=== PATIENT | female | born 1970 | race Caucasian/White ===

== ENCOUNTER → 2018-10-19 14:38 | Outpatient (CLI) | payer OTHER, SELFPAY ==
--- NOTE | 2018-10-19 | DI.MG.S_ITS ---
BILATERAL DIGITAL SCREENING MAMMOGRAM 3D/2D WITH CAD: 10/19/2018 CLINICAL: Routine screening. Family history of breast cancer. Comparison is made [facility] The tissue of both breasts is heterogeneously dense. This may lower the sensitivity of mammography. Current study was also evaluated with a Computer Aided Detection (CAD) system. No significant masses, calcifications, or other findings are seen in either breast. There has been no significant interval change. IMPRESSION: NEGATIVE There is no mammographic evidence of malignancy. A 1 year screening mammogram is recommended. This exam was interpreted at Station ID: [id number]. NOTE: For mammograms, a report in lay terms will be sent to the patient. Approximately 15% of breast malignancies will not be visualized mammographically. In the management of a palpable breast mass, a negative mammogram must not discourage biopsy of a clinically suspicious lesion. Electronically Signed By: Ashu keene/jonas:10/19/2018 17:55:40 letter sent: Normal Exam ACR BI-RADS Category 1: Negative 3341F
== END ==
PROVIDERS: Family Provider Internal Medicine; PCP Internal Medicine; Visit Provider Internal Medicine
DX: Z12.31 Encounter for screening mammogram for malignant neoplasm of breast (principal); Z80.3 Family history of malignant neoplasm of breast
CPT/HCPCS: 77063; 77067

== ENCOUNTER → 2019-07-15 11:47 | Outpatient (CLI) | payer OTHER, SELFPAY ==
--- NOTE | 2019-07-15 | DI.RAD.S_ITS ---
PROCEDURE: XR CHEST 2V INDICATIONS: ASTHMA TECHNIQUE: 2 views of the chest were acquired. COMPARISON: [facility], , CHEST 2 VIEW, 06/21/2013, 11:11. FINDINGS: Surgical changes and devices: Lumbosacral spine posterior fixation devices stable over time.. Lungs and pleura: Lungs are clear. No pleural effusions or pneumothorax. Mediastinum: Mediastinal contours are normal. Heart size is normal. Bones and chest wall: No suspicious bony abnormalities. Soft tissues appear unremarkable. IMPRESSION: Normal for age, source of current asthma symptoms is not seen. Dictated by: Melquiades Montoya M.D. on 07/15/2019 at 12:47 Approved by: Melquiades Montoya M.D. on 07/15/2019 at 12:48
== END ==
PROVIDERS: PCP Internal Medicine; Visit Provider Internal Medicine
DX: J45.909 Unspecified asthma, uncomplicated (principal)
CPT/HCPCS: 71046

== ENCOUNTER → 2020-02-18 11:44 | Outpatient (CLI) | payer OTHER, SELFPAY ==
[2020-02-19 09:40] LABS: COVID19 Sendout Not Detected (Not Detect)
== END ==
PROVIDERS: PCP Internal Medicine; Visit Provider Physician Assistant
DX: Z11.59 Encounter for screening for other viral diseases (principal)
CPT/HCPCS: 87635

== ENCOUNTER 2020-02-21 14:02 | Day surgery (SDC) | payer OTHER, SELFPAY ==
--- NOTE | 2020-02-21 | PATH_ITS ---
[facility] Accession Number: [id number] . 01 Material submitted: . colon - FRIABLE MUCOSA ASCENDING COLON . 01 Clinical history: . SCREENING COLONOSCOPY . 02 Diagnosis: Ascending Colon, Friable Mucosa, Biopsy: Colonic mucosa with a small benign lymphoid aggregate and no other diagnostic abnormality. Additional levels were examined. Negative for dysplasia and malignancy. V 02/25/2020 1413 Local . 02 Electronically signed: . Delma Gutierrez MD, Pathologist NPI- [id number] . 01 Gross description: . FRIABLE MUCOSA ASCENDING COLON: Received in formalin are 2 fragment(s) of roach, soft tissue measuring 0.3 x 0.2 x 0.1 cm to 0.3 x 0.1 x 0.1 cm submitted entirely in 1 cassette(s) /QBJ 02/22/2020 0753 Local . 02 Pathologist provided ICD-10: Z12.11 . 02 CPT . 742056 Performed at: 01 [facility] [address], [place], [place] [id number] MD Patrick Killian MD Phone: [phone] Performed at: 02 [facility] [address] [place], [place] [id number] MD Delma Gutierrez MD Phone: [phone]
--- NOTE | 2020-02-21 12:02 | P.HP_ITS ---
History of Present Illness History of Present Illness Date Patient Seen: 02/21/20 Chief complaint: SCREENING COLONOSCOPY Narrative: 49 Years Old Female seen today for consideration of a screening colonoscopy. There have been no lower GI symptoms suggesting disease such as change in bowel habits, bleeding, abdominal pain or anemia. There's been no family history of colon cancer or colon polyps. Overall health issues have been stable, including no major cardiac events for at least 6 weeks. Current Medications: 1) Prednisone 20 Mg Oral Tablet (Prednisone) .... Take 2 tablets for 5 days, then 1 tablet for 5 days then 1/2 tablet for 5 days. 2) Amoxicillin-Pot Clavulanate 875-125 Mg Oral Tablet (Amoxicillin-Pot Clavulanate) .... Take one tablet twice a day for 14 days 3) Ketoconazole 2 % External Shampoo (Ketoconazole) .... use 2 times per week 4) Advair Diskus 250-50 Mcg/dose Inhalation Aerosol Powder Breath Activated (Fluticasone-Salmeterol) .... 1 inhalation twice daily 5) Fluocinonide 0.05 % External Solution (Fluocinonide) .... 1 application to affected area twice daily 6) Clobetasol Propionate 0.05 % External Cream (Clobetasol Propionate) .... Apply thin film to the affected area twice daily. Not for use on face. 7) Ipratropium-Albuterol 0.5-2.5 (3) Mg/3ml Inhalation Solution (Ipratropium- Albuterol) .... 1 vial by nebulizer 4-6 times daily. 8) Montelukast Sodium 10 Mg Oral Tablet (Montelukast Sodium) .... Take 1 tablet by mouth once a day for asthma or allergies. 9) Budesonide 0.5 Mg/2ml Inhalation Suspension (Budesonide) .... one in nebulizer every 6 hours as needed for asthma 10) Proair Hfa 108 (90 Base) Mcg/act Inhalation Aerosol Solution (Albuterol Sul fate) .... 2 puffs every 4 hours PRN 11) Nortrel 7/7/7 0.5/0.75/1-35 Mg-Mcg Oral Tablet (Norethin-Eth Estrad Triphasic) .... Take one by mouth every day Allergies: 1) Sulfa (Severe) 2) Hydrocodone (Severe) Past Medical History: Broken back 2003 Abnormal pap smear-2012 Back Fracture Hayfever Nasal polyps Hx chicken pox Asthma Perimenopause Past Surgical History: History of back surgery with 4 rods (12/2002) Family History: Reviewed history from 09/19/2018 and no changes required: Father: Armond Mother: Rebecca-Breast cancer Siblings: rPashant(1970) Grandmother: Breast cancer Social History: Marital Status: Children: Livia(1993), Herberth(1995) Occupation: [employer] Household Members: Bill- Education: Alcohol drinks/day: 4/day Caffeine use/day: 0 Type of Exercise: walk Exercise Times per Week: 2/week Dental Care w/in 6 mos.: no Seat Belt Use: yes Smoking Status: never smoker HIV High Risk Behavior: no Patient History Medical History (Updated 05/07/18 @ 18:24 by SABRINA Maynard) Abnormal Pap smear of cervix (Chronic 2012) Asthma (Chronic) Back fracture (Resolved) Chicken pox (Resolved) Hayfever (Chronic 2004) Nasal polyps (Chronic) Surgical History (Updated 05/07/18 @ 08:31 by Stephanie Wilcox) Anesthesia (Resolved) History of back surgery (Resolved 12/2004) History of back surgery (Resolved 12/2002) History of sinus surgery (Resolved 08/2013) Family & Social History Family History (Updated 11/23/14 @ 00:00 by Conversion Provider) Grandmother Breast cancer Mother Breast cancer Tobacco & Substance use: Smoking Status Never smoker Meds Home Medications and Allergies Home Medications Medication Instructions Recorded Confirmed Type budesonide 0.5 mg INH SEE INSTRUCTIONS #120 08/03/16 02/21/20 History montelukast [Singulair] 10 mg PO QDAY #30 tab 08/03/16 02/21/20 Rx ipratropium-albuterol 3 ml INH BID PRN #60 ea 12/07/16 02/21/20 Rx Necon () 1 tab PO QDAY #3 pac 08/07/17 02/21/20 Rx clobetasol 0.05 % TOPICAL QDAY #15 gm 08/07/17 02/21/20 Rx fluocinonide 0.05 % topical 1 applictn TOP BID #60 ml 05/07/18 02/21/20 Rx solution fluticasone 250 mcg-salmeterol 50 1 inhalation INHALATION BID #60 05/07/18 02/21/20 Rx mcg/dose blistr powdr for dose inhalation albuterol sulfate 90 mcg/actuation 2 inhalation INHALATION Q4H PRN #1 09/04/18 02/21/20 Rx breath activated powder inhaler each prednisone 10 mg PO SEE INSTRUCTIONS PRN 02/21/20 02/21/20 History Allergies Allergy/AdvReac Type Severity Reaction Status Date / Time Sulfa (Sulfonamide Allergy Severe RASH Verified 02/21/20 14:17 Antibiotics) [SULFA (SULFONAMIDE ANTIBIOTICS)] hydrocodone [HYDROCODONE] Allergy Mild VOMITING Verified 02/21/20 14:17 Review of Systems Review of Systems ROS: Yes All systems reviewed with the patient and are negative except as otherwise documented Exam Narrative Exam Narrative: GENERAL: Alert and oriented, appearing stated age and in no acute distress. HEENT: Head normocephalic/atraumatic. Pupils equal, round, and reactive to light and accomodation. Extraocular muscles intact. Tympanic membranes clear. Nasal mucosa moist, septum midline. Oral mucosa moist, no lesions. Neck soft and supple, no lymphadenopathy. LUNGS: Clear to ausculation bilaterally, no wheezes, rhonchi or rales. CV: Normal S1 and S2 with regular rate and rhythm, no audible murmurs, rubs or gallops. ABDOMEN: Soft, non-tender, non-distended, no organomegaly. Positive bowel sounds. EXTREMITIES: No clubbing, cyanosis, or edema. NEURO: Cranial nerves II through XII grossly intact, no focal deficits. PSYCH: Alert and oriented x 3. SKIN: No concerning lesions. Assessment & Plan Assessment & Plan narrative: 1. Screening for colon cancer Plan for colonoscopy. The nature and character of the procedure as well as anticipated results were discussed. The possibility of not completing the procedure was also discussed. Possible complications including aspiration pneumonia, bleeding, perforation and reaction to medications either for sedation or preparation and missed lesions were discussed. Questions were answered and proceeding to the colonoscopy was elected. Informed consent signed. I sincerely appreciate the referral allowing me to participate in this patient's care. Please contact me with any questions or concerns.
--- NOTE | 2020-02-21 12:04 | PM.OP.ENDO ---
Operative Date/Time/Diagnoses Date of procedure: 02/21/20 Procedure Notes SCOAP/Timeout: 3:12 p.m. Procedure in detail: ENDOSCOPIST: Tina Amezquita MD Sedation RN: Armand Mccann RN Sedation start time: 3:13 p.m. Sedation end time: 3:48 p.m. PROCEDURE: Colonoscopy INDICATIONS: 1. Screening for colon cancer MEDICATION: Levsin 0.125 mg sublingual, incremental doses of Versed and fentanyl until appropriate level sedation achieved. ASA CLASS: 1 CECAL WITHDRAWAL TIME: 15 minutes COMPLICATIONS: None. EXTENT OF PROCEDURE: Cecum. QUALITY OF PREP: Good with portions of liquid stool. PROCEDURE: Prior to insertion of the colonoscope, a digital rectal examination was accomplished with circumferential palpation of the distal rectal mucosa without significant findings being noted. The high-definition pediatric colonoscope was passed into the rectum in the usual fashion and advanced over to the cecum without difficulty. The ileocecal valve, appendiceal stoma, and medial wall all could be inspected and no abnormalities were seen. ASCENDING COLON: As the colonoscope was withdrawn, care was taken to expose and inspect the haustral folds and there was a small area of friable mucosa that was biopsied x2. HEPATIC FLEXURE: Normal, no polyps, diverticula or other abnormalities. TRANSVERSE COLON: Normal, no polyps, diverticula or other abnormalities. DESCENDING COLON: Normal, no polyps, diverticula or other abnormalities. SIGMOID COLON: Normal, no polyps, diverticula or other abnormalities. RECTUM: Normal. J maneuver was produced. There was no significant perianal disease. The J maneuver was broken. The remainder of the rectum was inspected and there was [] no external hemorrhoid disease. The scope was withdrawn. IMPRESSION: 1. Normal colonoscopy 2. Friable mucosa, proximal ascending colon PLAN: 1. Follow-up in clinic status post pathology results. 2. Anticipate 10 year interval between scopes, will await pathology. The possibility of a missed lesion including a malignancy has been discussed with the patient previously. Potential alarm symptoms have been discussed and should be reported immediately. Post-procedure Recommendations: Colonscopy in 10 years Follow up: weeks (2) Disposition: PACU
[2020-02-21] MEDS: HYOSCYAMINE 0.125 MG TABLET PO (14:22)
[2020-02-21 14:30] VITALS: BP 126/77; PULSE 78; RESP 16; TEMP 36.8; O2SAT 99; BMI 24.6
[2020-02-21] MEDS: LACTATED RINGERS 1,000 ML 200 ML IV (14:45)
[2020-02-21] MEDS: fentaNYL 250 MCG/5 ML INJ IV (15:13)
[2020-02-21] MEDS: MIDAZOLAM 5 MG/5 ML VIAL IV (15:13)
[2020-02-21 15:52] VITALS: BP 115/85; PULSE 75; RESP 15; O2SAT 97
[2020-02-21 15:57] VITALS: BP 110/70; PULSE 70; RESP 20; O2SAT 98
[2020-02-21 16:14] VITALS: BP 126/77; PULSE 78; RESP 16; TEMP 36.2; O2SAT 99
== END 2020-02-21 16:16 | disposition home or self-care (01) ==
PROVIDERS: PCP Internal Medicine; Referring Provider Internal Medicine; Visit Provider Student in an Organized Health Care Education/Training Program
PROC: 0DJD8ZZ Inspection of Lower Intestinal Tract, Via Natural or Artificial Opening Endoscopic (ICD-10-PCS; CPT 45378; principal; 2020-02-21 15:15)
DX: Z12.11 Encounter for screening for malignant neoplasm of colon (principal)
CPT/HCPCS: 45380; J2250; J3010

== ENCOUNTER → 2020-09-16 16:46 | Outpatient (CLI) | payer OTHER, SELFPAY ==
--- NOTE | 2020-09-16 16:48 | DI.MG.S_ITS ---
BILATERAL DIGITAL SCREENING MAMMOGRAM 3D/2D WITH CAD: 09/16/2020 CLINICAL: Routine screening. Family history of breast cancer. Comparison is made to exams dated: 10/19/2018 mammogram and 10/16/2017 mammogram - [facility]. The tissue of both breasts is heterogeneously dense. This may lower the sensitivity of mammography. Current study was also evaluated with a Computer Aided Detection (CAD) system. No significant masses, calcifications, or other findings are seen in either breast. There has been no significant interval change. IMPRESSION: NEGATIVE There is no mammographic evidence of malignancy. A 1 year screening mammogram is recommended. This exam was interpreted at Station ID: [id number]. NOTE: For mammograms, a report in lay terms will be sent to the patient. Approximately 15% of breast malignancies will not be visualized mammographically. In the management of a palpable breast mass, a negative mammogram must not discourage biopsy of a clinically suspicious lesion. Electronically Signed By: Ashu keene/jonas:09/16/2020 19:42:30 letter sent: Normal Exam ACR BI-RADS Category 1: Negative 3341F
== END ==
PROVIDERS: PCP Internal Medicine; Referring Provider Internal Medicine; Visit Provider Internal Medicine
DX: Z12.31 Encounter for screening mammogram for malignant neoplasm of breast (principal); Z80.3 Family history of malignant neoplasm of breast
CPT/HCPCS: 77063; 77067

== ENCOUNTER → 2021-09-20 16:31 | Outpatient (CLI) | payer OTHER, SELFPAY ==
--- NOTE | 2021-09-20 | DI.MG.S_ITS ---
BILATERAL DIGITAL SCREENING MAMMOGRAM 3D/2D WITH CAD: 09/20/2021 CLINICAL: Routine screening. Family history of breast cancer. Comparison is made to exams dated: 09/16/2020 mammogram, 10/19/2018 mammogram, and 10/16/2017 mammogram - [facility]. The tissue of both breasts is heterogeneously dense. This may lower the sensitivity of mammography. Current study was also evaluated with a Computer Aided Detection (CAD) system. No significant masses, calcifications, or other findings are seen in either breast. There has been no significant interval change. IMPRESSION: NEGATIVE There is no mammographic evidence of malignancy. A 1 year screening mammogram is recommended. This exam was interpreted at Station ID: [id number]. NOTE: For mammograms, a report in lay terms will be sent to the patient. Approximately 15% of breast malignancies will not be visualized mammographically. In the management of a palpable breast mass, a negative mammogram must not discourage biopsy of a clinically suspicious lesion. Electronically Signed By: Demian gramajo/jonas:09/21/2021 09:55:37 letter sent: Normal Exam ACR BI-RADS Category 1: Negative 3341F
== END ==
PROVIDERS: PCP Internal Medicine; Referring Provider Internal Medicine; Visit Provider Internal Medicine
DX: Z12.31 Encounter for screening mammogram for malignant neoplasm of breast (principal); Z80.3 Family history of malignant neoplasm of breast
CPT/HCPCS: 77063; 77067

== ENCOUNTER → 2022-09-29 11:51 | Outpatient (CLI) | payer OTHER, SELFPAY ==
--- NOTE | 2022-09-29 | DI.MG.S_ITS ---
BILATERAL DIGITAL SCREENING MAMMOGRAM 3D/2D WITH CAD: 09/29/2022 CLINICAL: Routine screening. Family history of breast cancer. Comparison is made to exams dated: 09/20/2021 mammogram, 09/16/2020 mammogram, and 10/19/2018 mammogram - [facility]. Both breasts are heterogeneously dense, which may obscure small masses (category c / 51-75% glandular tissue). Current study was also evaluated with a Computer Aided Detection (CAD) system. No significant masses, calcifications, or other findings are seen in either breast. There has been no significant interval change. IMPRESSION: NEGATIVE There is no mammographic evidence of malignancy. A 1 year screening mammogram is recommended. Based on Tyrer-Cuzick model (a risk assessment model), the patient's lifetime risk is 24.3% and her 10 year risk is 7.0%. If a patient has an elevated risk, a more comprehensive evaluation should be considered and/or a referral to a genetic counselor. The [employer], [employer], and NCCN Guidelines advise the consideration of Breast MRI as an adjunct to screening mammography in patients whose Lifetime risk to develop breast cancer is 20% or higher. This exam was interpreted at Station ID: [id number]. NOTE: For mammograms, a report in lay terms will be sent to the patient. Approximately 15% of breast malignancies will not be visualized mammographically. In the management of a palpable breast mass, a negative mammogram must not discourage biopsy of a clinically suspicious lesion. Electronically Signed By: Dani okeefe/jonas:09/29/2022 15:56:58 letter sent: Normal Exam ACR BI-RADS Category 1: Negative 3341F
== END ==
PROVIDERS: PCP Internal Medicine; Referring Provider Internal Medicine; Visit Provider Internal Medicine
DX: Z12.31 Encounter for screening mammogram for malignant neoplasm of breast (principal); Z80.3 Family history of malignant neoplasm of breast
CPT/HCPCS: 77063; 77067

== ENCOUNTER → 2023-03-21 10:12 | Outpatient (CLI) | payer OTHER, SELFPAY ==
--- NOTE | 2023-03-21 | DI.RAD.S_ITS ---
PROCEDURE: XR CHEST 2V INDICATIONS: shortness of breath, asthma TECHNIQUE: 2 views of the chest were acquired. COMPARISON: [facility], CR, XR CHEST 2V, 07/15/2019, 12:04. FINDINGS: Surgical changes and devices: Thoracolumbar fusion hardware is present. Lungs and pleura: Lungs are clear. No pleural effusions or pneumothorax. Mediastinum: Mediastinal contours are normal. Heart size is normal. Bones and chest wall: No suspicious bony abnormalities. Soft tissues appear unremarkable. IMPRESSION: No acute process. Dictated by: Sebastián Howell M.D. on 03/21/2023 at 11:45 Approved by: Sebastián Howell M.D. on 03/21/2023 at 11:45
== END ==
PROVIDERS: PCP Internal Medicine; Referring Provider Internal Medicine; Visit Provider Internal Medicine
DX: J45.40 Moderate persistent asthma, uncomplicated (principal); R06.02 Shortness of breath
CPT/HCPCS: 71046

== ENCOUNTER → 2023-04-07 11:35 | Outpatient (CLI) | payer OTHER, SELFPAY ==
--- NOTE | 2023-04-07 | DI.CT.S_ITS ---
PROCEDURE: CT CHEST W CON INDICATIONS: Cough, unspecified TECHNIQUE: After the administration of intravenous contrast, 5 mm thick sections acquired from the pulmonary apices to the posterior costophrenic angles. 1 mm axial lung, 5 mm thick coronal and sagittal reformats and 7 mm axial MIP were acquired. For radiation dose reduction, the following was used: automated exposure control, adjustment of mA and/or kV according to patient size. COMPARISON: [facility], CT, PE STUDY (CTA CHEST), 06/21/2013, 13:17. FINDINGS: Image quality: Excellent. Lungs and pleura: No acute air space opacities. No pleural effusions or pneumothorax. Central and peripheral airways are patent and normal in caliber. Calcified nodule in the right lower lobe. 4-5 mm solid nodule in the lingula (series 3, image 221). Mild bronchial thickening. Mediastinum: Heart size is normal. No pericardial effusion. No mediastinal or hilar adenopathy by size criteria. Thoracic aorta and central pulmonary arteries are normal in size. Esophagus is normal in caliber. No hiatal hernia. Bones and chest wall: No suspicious bony lesions. Chronic compression deformity of the L1 vertebral body, without endplate retropulsion. No axillary or supraclavicular adenopathy by size criteria. Thyroid gland is unremarkable . Posterior surgical fusion of the thoracolumbar spine. Abdomen: Visualized upper abdominal solid organs appear normal. Upper abdominal bowel loops are normal in caliber. IMPRESSION: Mild bronchial thickening, suggestive of infectious or inflammatory bronchitis. 4-5 mm solid nodule in the lingula. Consider 12 month follow-up if at high risk for developing lung cancer, per Fleischner Society guidelines. Dictated by: Mamadou Stern M.D. on 04/07/2023 at 12:20 Approved by: Mamadou Stern M.D. on 04/07/2023 at 12:34
== END ==
PROVIDERS: PCP Internal Medicine; Referring Provider Internal Medicine; Visit Provider Internal Medicine
DX: R06.02 Shortness of breath (principal); J45.901 Unspecified asthma with (acute) exacerbation; R05.9 Cough, unspecified; R91.1 Solitary pulmonary nodule
CPT/HCPCS: 71260; Q9967

== ENCOUNTER → 2023-04-10 10:44 | Outpatient (CLI) | payer OTHER, SELFPAY | PROVIDERS: PCP Internal Medicine; Referring Provider Internal Medicine; Visit Provider Internal Medicine | DX: J45.901 Unspecified asthma with (acute) exacerbation (principal); R06.02 Shortness of breath | CPT/HCPCS: 94060; 94726; 94729 ==

== ENCOUNTER → 2023-04-27 13:43 | Outpatient (CLI) | payer OTHER, SELFPAY ==
[2023-04-27 15:08] LABS: Add Manual Diff / Slide Review NO; Basophils Absolute Auto 0 /uL (0-100); Basophils Percent Auto 0.6 % (0-2); Eosinophils Absolute Auto 500 /uL (0-450); Eosinophils Percent Auto 7.2 % (2-4); Hematocrit 38.8 % (36-46); Hemoglobin 13.1 g/dL (12.0-16.0); Lymphocytes Absolute Auto 1700 /uL (1100-4500); Lymphocytes Percent Auto 27.2 % (25-40); Mean Corpuscular HGB Conc 33.8 % (30-36); Mean Corpuscular Hemoglobin 33.3 PG (26-34); Mean Corpuscular Volume 98.6 fL (80-100); Monocytes Absolute Auto 600 /uL (0-900); Monocytes Percent Auto 9.9 % (3-14); Neutrophils Absolute Auto 3500 /uL (1500-7000); Neutrophils Percent Auto 55.1 % (50-75); Platelet Count 349 X10^3/uL (150-400); Red Blood Cell Count 3.94 X10^6/uL (4.0-5.2); Red Cell Distribution Width 13.9 % (11.6-14.8); White Blood Cell Count 6.4 X10^3/uL (4.5-11.0)
[2023-05-06 07:36] LABS: Alder IgE <0.10 kU/L (Class 0); Alternaria alternata IgE 0.14 kU/L (Class 0/I); Aspergillus fumigatus IgE 1.91 kU/L (Class III); Box Elder IgE <0.10 kU/L (Class 0); Cat Dander IgE <0.10 kU/L (Class 0); Cladosporium herbarum IgE 0.12 kU/L (Class 0/I); Cockroach IgE <0.10 kU/L (Class 0); Cottonwood IgE <0.10 kU/L (Class 0); D farinae IgE <0.10 kU/L (Class 0); D pteronyssinus IgE <0.10 kU/L (Class 0); Dog Dander IgE <0.10 kU/L (Class 0); Elm Tree IgE <0.10 kU/L (Class 0); Immunoglobulin E 289 IU/mL (6-495); Mountain Cedar IgE 0.21 kU/L (Class 0/I); Mouse Urine Proteins IgE <0.10 kU/L (Class 0); Nettle IgE <0.10 kU/L (Class 0); Oak Tree IgE <0.10 kU/L (Class 0); Penicillium chrysogen IgE 0.31 kU/L (Class 0/I); Pigweed, Common IgE <0.10 kU/L (Class 0); Ragweed, Short <0.10 kU/L (Class 0); Sheep Sorrel IgE <0.10 kU/L (Class 0); Silver Birch IgE <0.10 kU/L (Class 0); Walnut Allery IgE < 0.10 kU/L (Class 0); White ash IgE <0.10 kU/L (Class 0)
== END ==
PROVIDERS: PCP Internal Medicine; Referring Provider Internal Medicine Critical Care Medicine; Visit Provider Internal Medicine Critical Care Medicine
DX: J45.40 Moderate persistent asthma, uncomplicated (principal)
CPT/HCPCS: 36415; 82785; 85025; 86003

== ENCOUNTER → 2023-10-30 15:43 | Outpatient (CLI) | payer OTHER, SELFPAY ==
--- NOTE | 2023-10-30 15:44 | DI.MG.S_ITS ---
BILATERAL DIGITAL SCREENING MAMMOGRAM 3D/2D WITH CAD: 10/30/2023 CLINICAL: Routine screening. Family history of breast cancer. Comparison is made to exams dated: 09/29/2022 mammogram, 09/20/2021 mammogram, and 09/16/2020 mammogram - [facility]. Both breasts are heterogeneously dense, which may obscure small masses (category c / 51-75% glandular tissue). Current study was also evaluated with a Computer Aided Detection (CAD) system. No significant masses, calcifications, or other findings are seen in either breast. There has been no significant interval change. IMPRESSION: NEGATIVE There is no mammographic evidence of malignancy. A 1 year screening mammogram is recommended. Based on Tyrer-Cuzick model (a risk assessment model), the patient's lifetime risk is 25.2% and her 10 year risk is 7.7%. If a patient has an elevated risk, a more comprehensive evaluation should be considered and/or a referral to a genetic counselor. The [employer] [employer], [employer], and NCCN Guidelines advise the consideration of Breast MRI as an adjunct to screening mammography in patients whose Lifetime risk to develop breast cancer is 20% or higher. This exam was interpreted at Station ID: [id number]. NOTE: For mammograms, a report in lay terms will be sent to the patient. Approximately 15% of breast malignancies will not be visualized mammographically. In the management of a palpable breast mass, a negative mammogram must not discourage biopsy of a clinically suspicious lesion. Electronically Signed By: Florencio ford/jonas:10/31/2023 08:59:20 letter sent: Normal Exam ACR BI-RADS Category 1: Negative 3341F
== END ==
PROVIDERS: PCP Internal Medicine; Referring Provider Internal Medicine; Visit Provider Internal Medicine
DX: Z12.31 Encounter for screening mammogram for malignant neoplasm of breast (principal); R92.333 Mammographic heterogeneous density, bilateral breasts; Z80.3 Family history of malignant neoplasm of breast
CPT/HCPCS: 77063; 77067

== ENCOUNTER → 2024-06-28 11:11 | Outpatient (CLI) | payer OTHER, SELFPAY ==
--- NOTE | 2024-06-28 11:12 | DI.CT.S_ITS ---
PROCEDURE: CT CHEST WO CON INDICATIONS: 1 year follow up on nodule TECHNIQUE: Noncontrast 5 mm thick sections acquired from the pulmonary apices to the posterior costophrenic angles. 1 mm lung window, 5 mm thick coronal and sagittal and 7 mm axial MIP reformats were then acquired. For radiation dose reduction, the following was used: automated exposure control, adjustment of mA and/or kV according to patient size. COMPARISON: [facility], CT, CT CHEST W CON, 04/07/2023, 11:43. FINDINGS: Image quality: Diagnostic. Lower Neck: No enlarged lymph nodes. Thyroid: Normal CT appearance. Axillae: No enlarged lymph nodes. Chest Wall: Unremarkable. Bones: Partially imaged stabilization hardware in the lower thoracic/upper lumbar spine. Lungs and Pleura: Patchy opacities and indistinct nodular opacities in the lingula have resolved since the prior exam. A faint subpleural ground-glass opacity in the lateral left upper lobe at a mid lung level measures 4 mm, 3/149. This is stable. There is a dense calcified nodule in the right lower lobe at a similar level, 3/145. No other suspicious nodules or masses. Central and peripheral airways are normal without bronchial wall thickening or bronchiectasis. No pleural effusions or calcifications. Heart: Heart size is normal. No pericardial effusion. Thoracic Vessels: The aorta and pulmonary arteries demonstrate normal size. Mediastinum and Lina: No enlarged lymph nodes. Esophagus: No wall thickening. No hiatal hernia. Upper Abdomen: Visualized upper abdomen solid organs and bowel loops appear normal. IMPRESSION: Interval resolution of suspicious nodules in the lingula. Stable appearance 3 mm ground-glass left upper lobe nodule and solidly calcified right lower lobe nodule, both benign. Dictated by: Adela Abad M.D. on 06/29/2024 at 23:06 Approved by: Adela Abad M.D. on 06/29/2024 at 23:13
== END ==
PROVIDERS: PCP Internal Medicine; Referring Provider Internal Medicine Critical Care Medicine; Visit Provider Internal Medicine Critical Care Medicine
DX: R91.8 Other nonspecific abnormal finding of lung field (principal)
CPT/HCPCS: 71250

== ENCOUNTER → 2024-12-09 13:01 | Outpatient (CLI) | payer OTHER, SELFPAY ==
--- NOTE | 2024-12-09 13:02 | DI.MG.S_ITS ---
MM screening mammo BI: 12/09/2024. BI-RADS: 1 CLINICAL: 54-year old female for bilateral screening mammogram. Tyrer-Cuzick lifetime risk of 11.6%. Current reported family history of breast cancer: mother. PRIOR EXAMS 10/30/2023, 09/29/2022, 09/20/2021, 09/16/2020, 10/19/2018, 10/16/2017. MAMMOGRAPHY TECHNIQUE: 2D and 3D (tomosynthesis) digital mammographic views obtained, with additional images as needed for full coverage. Current study was also evaluated with a Computer Aided Detection (CAD) system. DENSITY B. There are scattered areas of fibroglandular density. MAMMOGRAPHY FINDINGS Bilateral: No suspicious mass, asymmetry, microcalcification, or other abnormality seen. No significant change from comparison. IMPRESSION: * No evidence of malignancy. RECOMMENDATIONS Bilateral * Annual screening mammography. OVERALL ASSESSMENT CATEGORY BI-RADS-1: Negative. The [employer] recommends annual screening mammography beginning at age 40 for women with average risk of breast cancer. ELECTRONICALLY SIGNED: Adela Abad M.D. on 12/09/2024 at 04:43:07 PM PT Interpreting Station ID: [id number]
== END ==
LOC: MAMMO 13:01
PROVIDERS: PCP Registered Nurse; Referring Provider Registered Nurse; Visit Provider Registered Nurse
DX: Z12.31 Encounter for screening mammogram for malignant neoplasm of breast (principal); Z80.3 Family history of malignant neoplasm of breast
CPT/HCPCS: 77063; 77067

== ENCOUNTER → 2025-03-13 13:36 | Outpatient (CLI) | payer OTHER, SELFPAY ==
--- NOTE | 2025-03-13 13:38 | DI.RAD.S_ITS ---
PROCEDURE: XR DEXA AXIAL SKELETON INDICATIONS: osteoporosis screening COMPARISON: None. FINDINGS: Lumbar Spine: Bone mineral density 1.056 g/cm2, T score -0.4. Left Femoral Neck: Bone mineral density 0.778 g/cm2, T score -0.6. Left Hip: Bone mineral density 0.849 g/cm2, T score -0.8. Fracture Risk Calculation (when applicable): 10-year fracture risk of a major osteoporotic fracture 12 percent and of a hip fracture 0.6 percent. (T score greater or equal to -1.0 to: NORMAL) (T score from -1.1 to -2.4: OSTEOPENIA) (T score less than or equal to -2.5: OSTEOPOROSIS) IMPRESSION: Normal--- recommend repeat DEXA as clinically indicated. Follow-up guidelines as follows: Osteoporosis: Consider a repeat DEXA and Vertebral Fracture Assessment (VFA) exam in 2 years or sooner if medically necessary, to reassess this patient's status. Osteopenia: Consider a repeat DEXA in 2-3 years to reassess this patient's status, or if there is a new clinical indication. Normal: Consider a repeat DEXA in 5 years or sooner, or if there is a new clinical indication. All treatment decisions require clinical judgment and consideration of individual patient factors, including patient preferences, comorbidities, previous drug use, risk factors not captured in the FRAX model (e.g., frailty, falls, vitamin D deficiency, increased bone turnover, interval significant decline in bone density ) and possible under- or over-estimation of fracture risk by FRAX. In addition, the NOF Guide recommends that FDA-approved medical therapies be considered in postmenopausal women and men age >= 50 years with a: * Hip or vertebral (clinical or morphometric) fracture * T-score of <=-2.5 at the spine or hip * Ten-year fracture probability by FRAX of >= 3% for hip fracture or >=20% for major osteoporotic fracture. Dictated by: Marko Leiva M.D. on 03/13/2025 at 20:13 Approved by: Marko Leiva M.D. on 03/13/2025 at 20:14
== END ==
PROVIDERS: PCP Registered Nurse; Referring Provider Registered Nurse; Visit Provider Emergency Medicine
DX: Z13.820 Encounter for screening for osteoporosis (principal); N95.1 Menopausal and female climacteric states
CPT/HCPCS: 77080